=== PATIENT | female | born 1960 | race Caucasian/White ===

== ENCOUNTER 2018-02-17 12:36 | Outpatient (CLI) | payer OTHER | END 2018-02-17 12:37 | disposition home or self-care (01) | LOC: BICMAMMO 12:36 | PROVIDERS: ATTEND Obstetrics & Gynecology | DX: Z12.31 Encounter for screening mammogram for malignant neoplasm of breast (principal) | CPT/HCPCS: 77063; 77067 ==

== ENCOUNTER 2019-02-18 14:31 | Outpatient (CLI) | payer OTHER ==
--- NOTE | 2019-02-18 15:03 | MMO ---
Bilateral MAMMO Bilat Screen [facility]DI+TERI. CLINICAL HISTORY: Patient is 59 years old and is seen for screening. The patient has no family history of breast cancer. The patient has no personal history of cancer. VIEWS: The views performed were: bilateral craniocaudal with tomosynthesis and bilateral mediolateral oblique with tomosynthesis. FILMS COMPARED: The present examination has been compared to prior imaging studies performed at [facility] on 02/14/2017 and 02/17/2018, and at [facility] on 01/16/2016 and 01/26/2016. This study has been interpreted with the assistance of computer-aided detection. MAMMOGRAM FINDINGS: There are scattered fibroglandular densities. There is a focal asymmetry seen in the CC view only seen in the outer region of the right breast. In the left breast, there are no suspicious masses, calcifications or areas of architectural distortion. IMPRESSION: FOCAL ASYMMETRY IN THE RIGHT BREAST REQUIRES ADDITIONAL EVALUATION. ADDITIONAL IMAGING. THE RESULTS OF THIS EXAM WERE SENT TO THE PATIENT. ACR BI-RADS Category 0 - Incomplete: Need additional imaging evaluation. [facility] will notify the patient of the need for additional imaging services. MAMMOGRAPHY NOTE: 1. A negative mammogram report should not delay a biopsy if a dominant of clinically suspicious mass is present. 2. Approximately 10% to 15% of breast cancers are not detected by mammography. 3. Adenosis and dense breasts may obscure an underlying neoplasm. Reported by: LOVELY MERRITT MD Electonically Signed: [id number]
== END 2019-02-18 14:32 | disposition home or self-care (01) ==
LOC: BICMAMMO 14:31
PROVIDERS: ATTEND Obstetrics & Gynecology
DX: Z12.31 Encounter for screening mammogram for malignant neoplasm of breast (principal); N64.89 Other specified disorders of breast
CPT/HCPCS: 77063; 77067

== ENCOUNTER 2019-02-23 12:37 | Outpatient (CLI) | payer OTHER ==
--- NOTE | 2019-02-23 12:58 | MMO ---
Right Breast MAMMO Unilat Diag DDI RT+TERI. CLINICAL HISTORY: Patient is 59 years old and is seen for diagnostic exam. The patient has no family history of breast cancer. The patient has no personal history of cancer. VIEWS: The views performed were: right craniocaudal with tomosynthesis; right mediolateral oblique with tomosynthesis; and right mediolateral with tomosynthesis. FILMS COMPARED: The present examination has been compared to prior imaging studies performed at [facility] on 02/14/2017, 02/17/2018 and 02/18/2019, and at [facility] on 01/26/2016. This study has been interpreted with the assistance of computer-aided detection. MAMMOGRAM FINDINGS: There are scattered fibroglandular densities. The asymmetry seen at screening mammography does not persist at additional imaging, compatible with superimposed tissue. There are no suspicious masses, suspicious calcifications, or new areas of architectural distortion. IMPRESSION: THERE IS NO MAMMOGRAPHIC EVIDENCE OF MALIGNANCY. A ROUTINE FOLLOW-UP MAMMOGRAM IN 1 YEAR IS RECOMMENDED. THE RESULTS OF THIS EXAM WERE SENT TO THE PATIENT. ACR BI-RADS Category 2 - Benign finding MAMMOGRAPHY NOTE: 1. A negative mammogram report should not delay a biopsy if a dominant of clinically suspicious mass is present. 2. Approximately 10% to 15% of breast cancers are not detected by mammography. 3. Adenosis and dense breasts may obscure an underlying neoplasm. Reported by: MIAH ARCINIEGA MD Electonically Signed: [id number]
== END 2019-02-23 12:38 | disposition home or self-care (01) ==
LOC: BICMAMMO 12:37
PROVIDERS: ATTEND Obstetrics & Gynecology
DX: R92.2 Inconclusive mammogram (principal)
CPT/HCPCS: G0279

== ENCOUNTER 2020-01-05 14:51 | Outpatient (CLI) | payer OTHER ==
--- NOTE | 2020-01-05 16:15 | MMO ---
Bilateral MAMMO Bilat Screen DDI+TERI. CLINICAL HISTORY: Patient is 60 years old and is seen for screening. The patient has no family history of breast cancer. The patient has no personal history of cancer. VIEWS: The views performed were: bilateral craniocaudal with tomosynthesis and bilateral mediolateral oblique with tomosynthesis. FILMS COMPARED: The present examination has been compared to prior imaging studies performed at [facility] on 02/14/2017, 02/17/2018, 02/18/2019 and 02/23/2019. This study has been interpreted with the assistance of computer-aided detection. MAMMOGRAM FINDINGS: There are scattered fibroglandular densities. There are benign appearing and vascular calcifications seen in both breasts. There are no suspicious masses, suspicious calcifications, or new areas of architectural distortion. IMPRESSION: THERE IS NO MAMMOGRAPHIC EVIDENCE OF MALIGNANCY. A ROUTINE FOLLOW-UP MAMMOGRAM IN 1 YEAR IS RECOMMENDED. THE RESULTS OF THIS EXAM WERE SENT TO THE PATIENT. ACR BI-RADS Category 2 - Benign finding MAMMOGRAPHY NOTE: 1. A negative mammogram report should not delay a biopsy if a dominant of clinically suspicious mass is present. 2. Approximately 10% to 15% of breast cancers are not detected by mammography. 3. Adenosis and dense breasts may obscure an underlying neoplasm. Reported by: ALMA ROSA MARIN MD Electonically Signed: [id number]
== END 2020-01-05 14:52 | disposition home or self-care (01) ==
LOC: BICMAMMO 14:51
PROVIDERS: ATTEND Obstetrics & Gynecology
DX: Z12.31 Encounter for screening mammogram for malignant neoplasm of breast (principal)
CPT/HCPCS: 77063; 77067

== ENCOUNTER 2021-01-12 12:00 | Outpatient (CLI) | payer OTHER | END 2021-01-12 12:01 | disposition home or self-care (01) | LOC: BICMAMMO 12:00 | PROVIDERS: ATTEND Obstetrics & Gynecology | DX: Z12.31 Encounter for screening mammogram for malignant neoplasm of breast (principal) | CPT/HCPCS: 77063; 77067 ==

== ENCOUNTER 2022-01-15 08:56 | Outpatient (CLI) | payer BC | END 2022-01-15 08:57 | disposition home or self-care (01) | LOC: BICMAMMO 08:56 | PROVIDERS: ATTEND Obstetrics & Gynecology | DX: Z12.31 Encounter for screening mammogram for malignant neoplasm of breast (principal); Z13.820 Encounter for screening for osteoporosis; M81.0 Age-related osteoporosis without current pathological fracture; M85.851 Other specified disorders of bone density and structure, right thigh; M85.852 Other specified disorders of bone density and structure, left thigh | CPT/HCPCS: 77063; 77067; 77080 ==